=== PATIENT | male | born 1940 | race Caucasian/White ===

== ENCOUNTER → 2016-08-15 | Outpatient (CLI) | payer OTHER ==
[~2016-08-15] MED LIST: ADULT LOW DOSE81 MG PO; ASPIRIN325 PO; CLOPIDOGREL PO; GEMFIBROZIL 60600 MG; HYDROCHLOROTHIA25 M1; HYDROCHLOROTHIA25 M2 PO; LISINOPRIL20 MG PO; NITROGLYCERIN0.4 MG SL; PRINIVIL40 MG; SIMVASTATIN40 MG; SIMVASTATIN40 MG PO; SIMVASTATIN80 MG OR
== END ==
LOC: RAD 09:03
DX: J98.8 Other specified respiratory disorders (principal); R06.02 Shortness of breath

== ENCOUNTER → 2017-08-07 | Outpatient (CLI) | payer OTHER ==
[2017-08-07 09:13] LABS: HEMATOCRIT 49.6 % (42.0-52.0); HEMOGLOBIN 16.4 gm/dL (14.0-18.0); MCHC 33.2 g/dL (28.0-37.0); MCV 87.5 fL (80.0-100.0); RBC 5.66 mil/uL (4.50-6.00); RDW 14.3 % (10.5-14.5); WBC 10.4 thou/uL (4.0-11.0)
[2017-08-07 09:43] LABS: ALBUMIN 4.1 g/dL (3.4-5.0); CALCIUM 8.8 mg/dL (8.5-10.1); CREATININE 1.5 mg/dL (0.7-1.3); POTASSIUM 4.6 mmol/L (3.5-5.1); TOTAL BILIRUBIN 0.6 mg/dL (<0.1-1.0)
== END ==
LOC: CAT 06:21
PROVIDERS: Internal Medicine Cardiovascular Disease
DX: I48.91 Unspecified atrial fibrillation (principal); N28.1 Cyst of kidney, acquired

== ENCOUNTER 2017-08-13 06:43 | Observation (INO) | payer OTHER ==
[~2017-08-13] VITALS: Ht 193 cm; Wt 117.4 kg
--- NOTE | ~2017-08-13 | D ---
[facility] [place] [address] [address] DISCHARGE SUMMARY Name: DEDE LION Room #: 206-P [facility] MNoeR.#: [id number] Admission: 08/13/17 Attend Phys: Srinivasa Cantu MD Discharge: 08/14/17 Date of : 42 Report #: [id number] THIS REPORT FOR: //name// CC: Jay Oseguera DATE OF SERVICE: 08/14/2017 DISCHARGE DIAGNOSES: 1. Atrial fibrillation. 2. Sick sinus syndrome. 3. Pacemaker. PROCEDURES PERFORMED: AFib ablation. HISTORY: The patient has a history of AFib, who is here for an ablation. The procedure was successful. Transseptal was somewhat challenging and required approximately 20 minutes to perform due to the thick interatrial septum, but eventually was able to cross. All veins were successfully isolated and post-ablation his pacemaker was interrogated and found to be functioning normally. HOSPITAL COURSE: The patient was monitored overnight and did well the following day. He denied any chest pain or shortness of breath. On physical exam, his heart was regular rate and rhythm. Lungs were clear to auscultation bilaterally and his groin was healing nicely with no signs of hematoma. On telemetry he remained in sinus rhythm. As such, the patient was deemed stable for discharge home and he will continue his same home medications and will follow up in clinic with me in 3 months. By: [id number] Srinivasa Cantu MD /real
--- NOTE | ~2017-08-13 | P ---
[facility] [place] [address] [address] PROCEDURE REPORT Name: DEDE LION Room #: 206-P [facility] M..#: [id number] Admission: 08/13/17 Attend Phys: Srinivasa Cantu MD Discharge: 08/14/17 Date of : 42 Report #: [id number] THIS REPORT FOR: //name// CC: Jay Oseguera PREOPERATIVE DIAGNOSIS: Atrial fibrillation. POSTOPERATIVE DIAGNOSIS: Atrial fibrillation. HISTORY OF PRESENT ILLNESS: The patient is a 77-year-old with history of AFib, here for an ablation. PROCEDURES PERFORMED: 1. Atrial fibrillation ablation, CPT code 84790. 2. 3D mapping, CPT code 17178. 3. Intracardiac echo, CPT code 79608. ANESTHESIA: The patient underwent general anesthesia with no anesthesia related complications. PROCEDURE: The patient underwent informed consent where we discussed the details of the procedure including the risks, which include, but not limited to bleeding, infection, vascular damage, cardiac perforation as well as stroke and VA. He understood these risks and is willing to proceed. The patient was brought to the EP laboratory in a fasting and sedated state, prepped and draped in a sterile fashion. Prior to initiation of the procedure, his pacemaker was interrogated and found to be functioning normally. At baseline, he was in AFib with a ventricular rate of 475 milliseconds, QRS duration 90 milliseconds, QT interval 355 milliseconds. Next, I obtained access to the right femoral vein times 3, placing 8-Greek, 9-Greek and 7-Greek short sheath using the modified Seldinger technique. Next, under fluoroscopy, I placed a decapolar catheter into the coronary sinus and an ice catheter into the right atrium. Of note, he had a thick interatrial septum with an area that was thin in the anterior and inferior portion of the septum. It took me approximately 20 minutes to get transseptal with the SL1 sheath and then dilating up with the cryo sheath. Next, once the cryo sheath was in the left atrium, I created a detailed 3D geometry using a Lasso and we merged the 3D geometry with the cardiac CT scan. Prior to ablation, the patient spontaneously terminated to sinus rhythm. Next, the cryoablation balloon was placed in the left atrium. The patient had been systemically heparinized prior to undergoing the transseptal. I first ablated the left superior pulmonary vein and this vein isolated within 95 seconds of the first freeze, but then reconnected after about a minute. A second freeze was performed and isolation occurred within [address] [address] PROCEDURE REPORT Name: DEDE LION Room #: 206-P [facility] M.RNoe#: [id number] Admission: 08/13/17 Attend Phys: Srinivasa Cantu MD Discharge: 08/14/17 Date of : 42 Report #: [id number] seconds and I froze for a total of 160 seconds on the second freeze. Next, I turned my attention to the left inferior pulmonary vein and this isolated within 38 seconds of the first freeze and I performed one 4 minute freeze. Next, the right-sided veins were isolated and phrenic nerve pacing was performed with the decapolar catheter placed at the level of the subclavian vein. I performed two 3 minute freezes and this vein demonstrated both entrance and exit block. There was evidence of a right inferior and right middle pulmonary vein. These were in close proximity and the cryoballoon overlapped both of these vessels. I performed a 4-minute freeze and then a second freeze of 180 seconds. The vein isolated within 42 seconds of the second freeze. I used my Achieve catheter and interrogated both the middle and the inferior pulmonary veins and these demonstrated isolation. As such, all veins were reinterrogated and found to be isolated. As such, sheaths were pulled to the right atrium. The ice catheter was utilized to verify that there was no pericardial effusion. Then, the patient received systemic protamine and once ACT was within acceptable range, all catheters and sheaths were pulled and hemostasis was obtained. The patient awoke neurologically and hemodynamically intact, no complications, and no significant bleeding. Post-ablation, the pacemaker was reinterrogated and found to be functioning normally. The patient was in sinus rhythm with an atrial rate of 1000 milliseconds, interval 200 milliseconds, QRS duration 89 milliseconds, QT interval of 460 milliseconds. CONCLUSIONS: 1. Successful AFib ablation with isolation of the 4 pulmonary veins as well as the middle cardiac vein. 2. Successful pacemaker reprogramming. By: [id number] Srinivasa Cantu MD /nt
[2017-08-13 07:15] VITALS: BP 121/89
[2017-08-13 07:25] LABS: ABSOLUTE NEUTROPHILS 5.7 thou/uL (1.4-8.2); BASOPHILS 0.4 % (0.0-2.0); HEMATOCRIT 53.7 % (42.0-52.0); HEMOGLOBIN 17.7 gm/dL (14.0-18.0); LYMPHOCYTES 46.9 % (24.0-44.0); MCH 28.9 pg (26.0-34.0); MCHC 32.9 g/dL (28.0-37.0); MCV 87.8 fL (80.0-100.0); MONOCYTES 7.6 % (1.0-8.0); PLATELET COUNT 210 thou/uL (150-400); POLYS 44.1 % (36.0-66.0); RBC 6.12 mil/uL (4.50-6.00); RDW 14.3 % (10.5-14.5)
[2017-08-13 07:32] LABS: CALCIUM 9.5 mg/dL (8.5-10.1); CREATININE 1.4 mg/dL (0.7-1.3); POTASSIUM 3.9 mmol/L (3.5-5.1)
[2017-08-13] MEDS ORDERED: PRADAXA150 MG PO (07:36)
[2017-08-13] MEDS ORDERED: TOPROL XL25 MG PO (07:36)
[2017-08-13] MEDS ORDERED: MULTAQ 400 MG400 MG PO (07:37)
[2017-08-13 07:38] LABS: APTT 32.2 Seconds (24.5-32.8); INR 1.1
[2017-08-13 13:15] VITALS: BP 121/89
[2017-08-13 19:26] VITALS: BP 116/62
[2017-08-13 23:10] VITALS: BP 96/52
[2017-08-14 04:16] VITALS: BP 99/61
[2017-08-14 07:28] VITALS: BP 106/66
[2017-08-14 09:11] VITALS: BP 106/66
== END 2017-08-14 09:45 | disposition home or self-care (01) ==
LOC: CATH 06:43 → 2N 12:50 → ENTRNSPT 08-14 09:37 → EDTRNSPTSTS 08-14 09:40 → 2N 08-14 09:45
PROVIDERS: Internal Medicine Cardiovascular Disease
DX: I48.0 Paroxysmal atrial fibrillation (principal); I25.119 Atherosclerotic heart disease of native coronary artery with unspecified angina pectoris; I73.9 Peripheral vascular disease, unspecified; I49.5 Sick sinus syndrome; I10 Essential (primary) hypertension; G47.33 Obstructive sleep apnea (adult) (pediatric); Z87.891 Personal history of nicotine dependence; Z95.0 Presence of cardiac pacemaker
CPT/HCPCS: 62110; 62900; 70005

== ENCOUNTER 2018-08-22 20:32 | Emergency (ER) | payer OTHER ==
[~2018-08-22] VITALS: Ht 193 cm; Wt 112.5 kg
[~2018-08-22 20:32] MED LIST changes: +MULTAQ 400 MG400 MG PO; +PRADAXA150 MG PO; +TOPROL XL25 MG PO
[2018-08-22 21:08] LABS: HEMATOCRIT 48.1 % (42.0-52.0); HEMOGLOBIN 16.2 gm/dL (14.0-18.0); MCHC 33.7 g/dL (28.0-37.0); MCV 86.1 fL (80.0-100.0); RBC 5.58 mil/uL (4.50-6.00); RDW 14.4 % (10.5-14.5); WBC 12.8 thou/uL (4.0-11.0)
[2018-08-22 21:19] LABS: CALCIUM 9.1 mg/dL (8.5-10.1); CREATININE 1.2 mg/dL (0.7-1.3); POTASSIUM 3.6 mmol/L (3.5-5.1)
[2018-08-22 21:23] LABS: APTT 47.5 Seconds (24.5-32.8); INR 1.3
[2018-08-22 21:31] LABS: URINE BILIRUBIN NEGATIVE (Negative); URINE BLOOD 3+ (Negative); URINE CLARITY CLOUDY; URINE COLOR RED; URINE GLUCOSE-RANDOM* NEGATIVE (Negative); URINE KETONES TRACE (Negative); URINE PROTEIN (DIPSTICK) 3+ (Negative); URINE SPECIFIC GRAVITY 1.025 (1.005-1.035)
[2018-08-22] MEDS ORDERED: DITROPAN XL5 M1 PO (21:31)
[2018-08-22 21:35] LABS: URINE LEUKOCYTES-REFLEX 1+ (Negative); URINE NITRITE-REFLEX POSITIVE (Negative)
[2018-08-22 21:36] LABS: BACTERIA-REFLEX >30 Many /HPF (None Seen); SQUAMOUS None Seen /LPF (0-3); URINE RBC >20 Many /HPF (0-2); URINE WBC-REFLEX >25 Many /HPF (0-5)
[2018-08-22 21:37] LABS: CASTS None Seen /LPF (None Seen); CRYSTALS None Seen /LPF (None Seen)
[2018-08-22] MEDS ORDERED: AUGMENTIN 875-1 EACH PO (21:41)
[2018-08-22 22:30] VITALS: BP 126/71
== END 2018-08-22 22:31 | disposition home or self-care (01) ==
LOC: ER 20:32
PROVIDERS: Emergency Medicine; Physician Assistant
DX: N40.0 Benign prostatic hyperplasia without lower urinary tract symptoms (principal); N39.0 Urinary tract infection, site not specified; R31.9 Hematuria, unspecified; I48.91 Unspecified atrial fibrillation; I25.10 Atherosclerotic heart disease of native coronary artery without angina pectoris; G47.30 Sleep apnea, unspecified; I10 Essential (primary) hypertension; K64.8 Other hemorrhoids; Z79.01 Long term (current) use of anticoagulants; Z87.891 Personal history of nicotine dependence

== ENCOUNTER 2019-03-01 21:28 | Emergency (ER) | payer OTHER ==
[~2019-03-01] VITALS: Ht 193 cm; Wt 111.1 kg
[~2019-03-01 21:28] MED LIST changes: +AUGMENTIN 875-1 EACH PO; +DITROPAN XL5 M1 PO
[2019-03-01 23:04] LABS: ABSOLUTE NEUTROPHILS 7.6 thou/uL (1.4-8.2); EOSINOPHILS 0.1 % (0.0-3.0); HEMOGLOBIN 15.4 gm/dL (14.0-18.0); LYMPHOCYTES 17.1 % (24.0-44.0); MCHC 32.8 g/dL (28.0-37.0); MCV 88.5 fL (80.0-100.0); MONOCYTES 6.4 % (1.0-8.0); PLATELET COUNT 145 thou/uL (150-400); POLYS 75.4 % (36.0-66.0); RBC 5.32 mil/uL (4.50-6.00); RDW 14.8 % (10.5-14.5)
[2019-03-01 23:10] LABS: URINE BILIRUBIN NEGATIVE (Negative); URINE BLOOD 3+ (Negative); URINE CLARITY SL CLOUDY; URINE COLOR YELLOW; URINE GLUCOSE-RANDOM* NEGATIVE (Negative); URINE KETONES NEGATIVE (Negative); URINE PROTEIN (DIPSTICK) NEGATIVE (Negative); URINE UROBILINOGEN 0.2 E.U./dl (0.2-1.0)
[2019-03-01 23:11] LABS: CALCIUM 8.7 mg/dL (8.5-10.1); CREATININE 1.3 mg/dL (0.7-1.3); POTASSIUM 3.7 mmol/L (3.5-5.1)
[2019-03-01 23:17] LABS: ALBUMIN 3.6 g/dL (3.4-5.0); TOTAL BILIRUBIN 0.9 mg/dL (<0.1-1.0); TOTAL PROTEIN 6.8 g/dL (6.4-8.2)
[2019-03-01 23:22] LABS: URINE LEUKOCYTES-REFLEX 2+ (Negative); URINE NITRITE-REFLEX POSITIVE (Negative)
[2019-03-01] MEDS ORDERED: CEFUROXIME250 MG PO (23:26)
[2019-03-01 23:37] LABS: CASTS None Seen /LPF (None Seen); MUCUS None Seen strn/LPF (None Seen); SQUAMOUS None Seen /LPF (0-3)
[2019-03-01 23:38] LABS: BACTERIA-REFLEX >30 Many /HPF (None Seen); CRYSTALS None Seen /LPF (None Seen); URINE RBC 3-10 Few /HPF (0-2); URINE WBC-REFLEX >25 Many /HPF (0-5); WBC CLUMPS Occasional (None Seen)
[2019-03-01 23:52] VITALS: BP 108/46
== END 2019-03-02 00:01 | disposition home or self-care (01) ==
LOC: ER 21:28
PROVIDERS: Emergency Medicine Emergency Medical Services
DX: N39.0 Urinary tract infection, site not specified (principal); I48.91 Unspecified atrial fibrillation; I25.10 Atherosclerotic heart disease of native coronary artery without angina pectoris; G47.30 Sleep apnea, unspecified; I10 Essential (primary) hypertension; Z85.828 Personal history of other malignant neoplasm of skin; Z87.891 Personal history of nicotine dependence

== ENCOUNTER → 2019-03-11 | Outpatient (CLI) | payer OTHER ==
[~2019-03-11] MED LIST changes: +CEFUROXIME250 MG PO
--- NOTE | 2019-03-17 20:57 | SLE ---
[facility] [place] [address] [address] POLYSOMNOGRAPHY STUDY Name: DEDE LION Room #: REG [facility]#: [id number] Admission: 03/11/19 Attend Phys: Srinivasa Cantu MD Discharge: Date of : 42 Report #: [id number] THIS REPORT FOR: //name// CC: Srinivasa Oseguera DATE OF SERVICE: 03/11/2019 SLEEP STUDY ATTENDING PHYSICIAN: Dr. Srinivasa Cantu. The patient is 79 years old who weighs 245 pounds with a BMI of 29.8. The patient's Thurston score was 6. The patient underwent diagnostic sleep study performed at [facility]. During the night study, the patient spent 499 minutes in bed and slept for 276 minutes with a sleep efficiency of 55%, which is low. Sleep latency was 16 minutes with a REM latency of 229 minutes. Sleep architecture showed increased stage 1 and stage 2 sleep, absent slow wave and reduced REM sleep, which was 8% of total sleep time. During the night study, the patient had 5 obstructive apneas, 2 mixed apneas, no central apneas and 19 hypopneas. The patient's apnea-hypopnea index was 5.7 per hour with a supine index of 0 per hour due to lack of supine sleep. REM related respiratory events were not observed. EKG monitoring revealed an average heart rate of 60 beats per minute. Occasional PVC's see. No sustained arrhythmias see. PLMS were seen at an index of 71 per hour and 8 per hour caused EEG arousals. Nocturnal oximetry study revealed an average oxygen saturation of 91% with lowest of 81%. 66 minutes were spent in oxygen saturation of less than 89%. IMPRESSION: 1. 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 2. Significantly reduced sleep efficiency of 55%, resulting from sleep maintenance insomnia. 3. Severe periodic limb movements. 4. Nocturnal hypoxia secondary to a combination of sleep apnea and suspected hypoventilation. RECOMMENDATIONS: [facility] [address] [place] [address] POLYSOMNOGRAPHY STUDY Name: DEDE LION Room #: REG CL Mata#: [id number] Admission: 03/11/19 Attend Phys: Srinivasa Cantu MD Discharge: Date of : 42 Report #: [id number] 1. The patient has mild sleep apnea. If the patient has comorbid conditions or is clinically symptomatic, then consider treatment with CPAP versus oral appliance. 2. Weight loss is strongly advised. 3. Avoid PCA depressants. 4. If the patient undergoes CPAP titration, then he should be followed up in 4-6 weeks to assess compliance with CPAP and to document clinical improvement. 5. If the patient does not undergo CPAP, then the patient would be eligible for 2 liters of oxygen at nighttime. 6. The patient should also be further evaluated for symptoms of restless legs during the day. <ELECTRONICALLY SIGNED> By: Jose Adames MD 03/17/192056 51 57 Jose Adames MD /nt
== END ==
LOC: SLEEPLAB 19:48
DX: G47.33 Obstructive sleep apnea (adult) (pediatric) (principal); G47.34 Idiopathic sleep related nonobstructive alveolar hypoventilation

== ENCOUNTER → 2019-08-25 | Outpatient (CLI) | payer OTHER | LOC: SJCVCIMAG 09:00 | DX: I25.10 Atherosclerotic heart disease of native coronary artery without angina pectoris (principal); E78.00 Pure hypercholesterolemia, unspecified; I49.5 Sick sinus syndrome; I48.0 Paroxysmal atrial fibrillation; G47.33 Obstructive sleep apnea (adult) (pediatric); I10 Essential (primary) hypertension; I35.8 Other nonrheumatic aortic valve disorders; Z95.0 Presence of cardiac pacemaker ==

== ENCOUNTER → 2019-09-09 | Outpatient (CLI) | payer OTHER | LOC: RAD 10:34 | DX: R06.02 Shortness of breath (principal) ==

== ENCOUNTER → 2020-03-04 | Outpatient (CLI) | payer OTHER | LOC: SJCVC 13:23 | PROVIDERS: ATTEND Internal Medicine Cardiovascular Disease | DX: I48.0 Paroxysmal atrial fibrillation (principal); R94.31 Abnormal electrocardiogram [ECG] [EKG]; I49.5 Sick sinus syndrome; I10 Essential (primary) hypertension; I25.10 Atherosclerotic heart disease of native coronary artery without angina pectoris; G47.33 Obstructive sleep apnea (adult) (pediatric); E66.01 Morbid (severe) obesity due to excess calories; Z95.0 Presence of cardiac pacemaker; Z79.899 Other long term (current) drug therapy; Z87.891 Personal history of nicotine dependence ==

== ENCOUNTER → 2020-04-13 | Outpatient (CLI) | payer OTHER | LOC: SJCVCIMAG 08:51 | PROVIDERS: ATTEND Internal Medicine Cardiovascular Disease | DX: I08.1 Rheumatic disorders of both mitral and tricuspid valves (principal); R94.31 Abnormal electrocardiogram [ECG] [EKG]; I11.9 Hypertensive heart disease without heart failure; I49.5 Sick sinus syndrome; I25.10 Atherosclerotic heart disease of native coronary artery without angina pectoris; I73.9 Peripheral vascular disease, unspecified; I48.0 Paroxysmal atrial fibrillation; D68.59 Other primary thrombophilia; E78.00 Pure hypercholesterolemia, unspecified; G47.33 Obstructive sleep apnea (adult) (pediatric); Z95.0 Presence of cardiac pacemaker; Z95.5 Presence of coronary angioplasty implant and graft; Z79.899 Other long term (current) drug therapy; Z87.891 Personal history of nicotine dependence ==

== ENCOUNTER → 2021-01-06 | Outpatient (CLI) | payer OTHER | LOC: SJCVC 14:27 | PROVIDERS: ATTEND Internal Medicine Cardiovascular Disease | DX: I25.10 Atherosclerotic heart disease of native coronary artery without angina pectoris (principal); I48.0 Paroxysmal atrial fibrillation; I49.5 Sick sinus syndrome; I10 Essential (primary) hypertension; E78.00 Pure hypercholesterolemia, unspecified; G47.33 Obstructive sleep apnea (adult) (pediatric); Z95.0 Presence of cardiac pacemaker; Z87.891 Personal history of nicotine dependence; Z72.89 Other problems related to lifestyle; Z79.899 Other long term (current) drug therapy; Z95.818 Presence of other cardiac implants and grafts; Z95.5 Presence of coronary angioplasty implant and graft ==